=== PATIENT | female | born 1955 | race Caucasian/White ===

== ENCOUNTER 2019-09-17 14:31 | Outpatient (REF) | payer MEDICAID, SELFPAY ==
[2019-09-17 21:34] LABS: Abs Immature Grans 0.09 k/cumm (0.0-0.09); Absolute Eosinophil Count 0.27 k/cumm (0.0-0.7); Absolute Lymphocyte Count 3.26 k/cumm (1.2-3.4); Basophils % 0.6; Eosinophils % 1.9; HCT 43.3 % (36.0-46.0); HGB 13.9 g/dL (12.0-15.5); Immature Grans % 0.6; Lymphocytes % 22.7; Mean Corp. HGB Concentration 32.1 g/dL (32.0-36.0); Mean Corpuscular Hemoglobin 29.3 pg (27.0-33.0); Mean Corpuscular Volume 91.2 fL (80-95); Mean Platelet Volume 9.9 fL (8.0-11.0); Monocytes % 5.4; Neutrophils % 68.8; Platelet Count 421 x1000/uL (130-400); RBC 4.75 m/cumm (4.00-5.20); RBC Distribution Width 14.7 % (11.7-14.6); White Blood Cell Count 14.37 k/cumm (4.4-10.8)
[2019-09-17 21:41] LABS: Absolute Basophil Count 0.09 k/cumm (0.0-0.2); Absolute Monocyte Count 0.78 k/cumm (0.11-0.7); Absolute Neutrophil Count 9.89 k/cumm (1.2-6.7)
[2019-09-17 21:43] LABS: ALT 21 U/L (14-59); AST 17 U/L (15-37); Albumin 3.8 g/dL (3.4-5.0); Alkaline Phosphatase 137 U/L (46-116); Anion Gap 12.9 mmol/L (3-11); BUN 14 mg/dL (7-18); Bilirubin, Total 0.4 mg/dL (0.2-1.0); CO2 23.1 mmol/L (21.0-32.0); CREATININE 1.15 mg/dL (0.55-1.02); Calcium 9.4 mg/dL (8.5-10.1); Chloride 107 mmol/L (98-107); Estimated GFR 47.66 (mL/min/1.73m2); Glucose 99 mg/dL (74-106); Lipase 436 U/L (73-393); Potassium 4.2 mmol/L (3.5-5.1); Sodium 143 mmol/L (136-145); Total Protein 7.7 g/dL (6.4-8.2)
[2019-09-19 11:24] LABS: HIV-1/2 Ag & Ab Screen Negative (Negative)
[2019-09-19 11:56] LABS: Syphilis Serology (RPR) Negative (Negative)
[2019-09-19 14:36] LABS: Chlamydia Result Negative (Negative)
[2019-09-20 08:58] LABS: GC Result Negative (Negative)
== END 2019-09-17 14:51 ==
LOC: NCHCN 14:31
PROVIDERS: PCP Family Medicine; Visit Provider Nurse Practitioner Family
DX: R10.9 Unspecified abdominal pain (principal); R10.2 Pelvic and perineal pain; Z11.4 Encounter for screening for human immunodeficiency virus [HIV]; Z11.3 Encounter for screening for infections with a predominantly sexual mode of transmission
CPT/HCPCS: 80053; 83690; 87389; 87491; 87591; 85025; 86592

== ENCOUNTER 2020-08-20 10:54 | Outpatient (REF) | payer MEDICAID, SELFPAY ==
[2020-08-20 20:47] LABS: HCT 41.6 % (36.0-46.0); HGB 12.8 g/dL (11.2-15.7); MCH 28.8 pg (27.0-33.0); MCHC 30.8 % (32.0-36.0); MCV 93.5 fL (80-95); MPV 10.2 fL (8.0-11.0); Platelet Count 328 10^3/uL (130-400); RBC 4.45 10^6/uL (3.93-5.22); RDW 13.4 % (11.7-14.6); WBC 11.86 10^3/uL (4.4-10.8)
[2020-08-20 21:29] LABS: Anion Gap 10.3 mmol/L (3-11); BUN 12 mg/dL (7-18); CO2 22.7 mmol/L (21.0-32.0); CREATININE 1.09 mg/dL (0.55-1.02); Calcium 9.1 mg/dL (8.5-10.1); Chloride 106 mmol/L (98-107); Glucose 184 mg/dL (74-106); Magnesium 2.1 mg/dL (1.8-2.4); Potassium 4.1 mmol/L (3.5-5.1); Sodium 139 mmol/L (136-145); TSH 1.75 uIU/mL (0.36-3.74); Vitamin B12 348 pg/mL (193-986)
== END 2020-08-20 11:14 ==
LOC: NCHCN 10:54
PROVIDERS: PCP Family Medicine; Visit Provider Nurse Practitioner Family
DX: J44.1 Chronic obstructive pulmonary disease with (acute) exacerbation (principal); J34.89 Other specified disorders of nose and nasal sinuses; I10 Essential (primary) hypertension; F31.32 Bipolar disorder, current episode depressed, moderate
CPT/HCPCS: 80048; 85027; 80178; 82607; 83735; 84443

== ENCOUNTER 2021-02-22 14:53 | Outpatient (REF) | payer MEDICAID, SELFPAY ==
[2021-02-24 13:33] LABS: COVID-19 RT-PCR UVMMC Result Negative (Negative)
== END 2021-02-22 14:54 | disposition home or self-care (01) ==
LOC: NCHCN 14:53
PROVIDERS: PCP Family Medicine; Visit Provider Nurse Practitioner Family
DX: Z20.822 Contact with and (suspected) exposure to COVID-19 (principal); J06.9 Acute upper respiratory infection, unspecified
CPT/HCPCS: U0003

== ENCOUNTER 2021-02-26 09:57 | Outpatient (REF) | payer MEDICAID, SELFPAY ==
[2021-02-26 14:11] LABS: Lithium < 0.2 mmol/l (0.6-1.2)
== END 2021-02-26 09:58 | disposition home or self-care (01) ==
LOC: NCHCN 09:57
PROVIDERS: PCP Family Medicine; Visit Provider Nurse Practitioner Psychiatric/Mental Health
DX: F31.32 Bipolar disorder, current episode depressed, moderate (principal); Z79.899 Other long term (current) drug therapy; Z51.81 Encounter for therapeutic drug level monitoring
CPT/HCPCS: 80178

== ENCOUNTER 2021-07-21 17:06 | Outpatient (REF) | payer MEDICAID, SELFPAY ==
[2021-07-21 17:34] LABS: ALT 23 U/L (14-59); AST 18 U/L (15-37); Albumin 3.4 g/dL (3.4-5.0); Alkaline Phosphatase 138 U/L (46-116); Anion Gap 10.5 mmol/L (3-11); BUN 25 mg/dL (7-18); Bilirubin, Total 0.3 mg/dL (0.2-1.0); CO2 23.5 mmol/L (21.0-32.0); CREATININE 1.4 mg/dL (0.55-1.02); Calcium 9.4 mg/dL (8.5-10.1); Chloride 107 mmol/L (98-107); Estimated GFR 37.86 (mL/min/1.73m2); Glucose 183 mg/dL (74-106); Potassium 4.1 mmol/L (3.5-5.1); Sodium 141 mmol/L (136-145)
[2021-07-21 17:47] LABS: Calculated LDL 71 mg/dL (<100); Cholesterol 166 mg/dL (<200); HDL Cholesterol 43 mg/dL (40-60); Triglyceride 260 mg/dL (<150)
== END 2021-07-21 17:07 | disposition home or self-care (01) ==
LOC: NCHCN 17:06
PROVIDERS: PCP Nurse Practitioner Family; Visit Provider Nurse Practitioner Family
DX: E11.9 Type 2 diabetes mellitus without complications (principal); I10 Essential (primary) hypertension
CPT/HCPCS: 80053; 80061

== ENCOUNTER 2021-08-05 09:55 | Outpatient (REF) | payer MEDICAID, SELFPAY ==
[2021-08-05 14:26] LABS: Abs Immature Grans 0.06 10^3/uL (0.0-0.06); Absolute Eosinophil Count 0.39 10^3/uL (0.0-0.7); Absolute Lymphocyte Count 2.68 10^3/uL (1.2-3.4); Absolute Neutrophil Count 8.94 10^3/uL (1.2-6.7); Basophils % 0.9; HCT 39.6 % (36.0-46.0); HGB 12.3 g/dL (11.2-15.7); Immature Grans % 0.5; Lymphocytes % 20.8; MCH 28.1 pg (27.0-33.0); MCHC 31.1 % (32.0-36.0); MCV 90.6 fL (80-95); MPV 10.6 fL (8.0-11.0); Monocytes % 5.4; Neutrophils % 69.4; Nucleated RBC 0 %; Platelet Count 387 10^3/uL (130-400); RBC 4.37 10^6/uL (3.93-5.22); RDW 12.9 % (11.7-14.6); RDW-SD 42.5 fL; WBC 12.88 10^3/uL (4.4-10.8)
[2021-08-05 14:27] LABS: Absolute Basophil Count 0.12 10^3/uL (0.0-0.2)
[2021-08-05 14:48] LABS: ALT 21 U/L (14-59); AST 20 U/L (15-37); Albumin 3.4 g/dL (3.4-5.0); Alkaline Phosphatase 152 U/L (46-116); Anion Gap 7.9 mmol/L (3-11); BUN 18 mg/dL (7-18); Bilirubin, Total 0.3 mg/dL (0.2-1.0); CO2 26.1 mmol/L (21.0-32.0); CREATININE 1.4 mg/dL (0.55-1.02); Calcium 9.3 mg/dL (8.5-10.1); Chloride 107 mmol/L (98-107); Estimated GFR 37.86 (mL/min/1.73m2); Glucose 201 mg/dL (74-106); Lipase 229 U/L (73-393); Potassium 4.2 mmol/L (3.5-5.1); Sodium 141 mmol/L (136-145); Total Protein 6.9 g/dL (6.4-8.2)
[2021-08-05 17:15] LABS: GGT 40 U/L (5-55)
[2021-08-09 11:38] LABS: IgA 190 mg/dL (85-499); Interpretation (See Note); Tissue Transglutaminase IgA <1.2 U/mL (<4.0)
== END 2021-08-05 09:56 | disposition home or self-care (01) ==
LOC: NCHCN 09:55
PROVIDERS: PCP Nurse Practitioner Family; Visit Provider Nurse Practitioner Family
DX: R74.8 Abnormal levels of other serum enzymes (principal); I10 Essential (primary) hypertension; N18.9 Chronic kidney disease, unspecified; R11.0 Nausea
CPT/HCPCS: 80053; 82784; 83516; 83690; 82977; 85025

== ENCOUNTER 2021-09-15 16:25 | Outpatient (REF) | payer MEDICARE, MEDICAID, SELFPAY ==
[2021-09-15 21:34] LABS: Bilirubin Negative (Negative); Blood Negative (Negative); Clarity Clear (Clear); Glucose Negative (Negative); Ketones Negative (Negative); Leukocyte Esterase Negative (Negative); Nitrite Negative (Negative); Specific Gravity >= 1.030 (1.005-1.025); Urobilinogen 0.2 EU/dL (Up TO 0.2)
[2021-09-15 21:44] LABS: Bacteria Many HPF (Negative); C & S Indicated? No/Sq. Contamination; Casts Negative LPF (Negative); Crystals Negative HPF (Negative); Epithelial Cells Many HPF (Negative); Mucus Negative (Negative); RBC Negative HPF (0-2)
[2021-09-15 21:48] LABS: Creatinine,Urine 349.08 mg/dL
[2021-09-15 21:52] LABS: Lithium 0.3 mmol/l (0.6-1.2)
[2021-09-17 15:38] LABS: COVID-19 RT-PCR UVMMC Result Negative (Negative)
== END 2021-09-15 16:26 | disposition home or self-care (01) ==
LOC: NCHCN 16:25
PROVIDERS: PCP Nurse Practitioner Family; Visit Provider Registered Nurse
DX: Z20.822 Contact with and (suspected) exposure to COVID-19 (principal); R19.7 Diarrhea, unspecified; F32.9 Major depressive disorder, single episode, unspecified
CPT/HCPCS: U0003; U0005; 80178; 81003; 81015; 82565

== ENCOUNTER 2021-10-04 16:10 | Outpatient (REF) | payer MEDICARE, MEDICAID, SELFPAY ==
[2021-10-04 22:07] LABS: ALT 59 U/L (14-59); AST 42 U/L (15-37); Alkaline Phosphatase 124 U/L (46-116); Anion Gap 15.1 mmol/L (3-11); BUN 14 mg/dL (7-18); Bilirubin, Total 0.3 mg/dL (0.2-1.0); CO2 18.9 mmol/L (21.0-32.0); Calcium 8.8 mg/dL (8.5-10.1); Chloride 110 mmol/L (98-107); Glucose 110 mg/dL (74-106); Lipase 166 U/L (73-393); PHOSPHORUS 3.7 mg/dL (2.6-4.7); Potassium 3.8 mmol/L (3.5-5.1); Sodium 144 mmol/L (136-145); Total Protein 6.5 g/dL (6.4-8.2)
[2021-10-04 22:12] LABS: CREATININE 1.1 mg/dL (0.55-1.02); Estimated GFR 49.85 (mL/min/1.73m2)
[2021-10-04 22:45] LABS: Vitamin D 25 Total 27.1 ng/mL (30-100)
[2021-10-06 12:05] LABS: Parathyroid Hormone,Intact 26 pg/mL (19-88)
== END 2021-10-04 16:11 | disposition home or self-care (01) ==
LOC: NCHCN 16:10
PROVIDERS: PCP Nurse Practitioner Family; Visit Provider Nurse Practitioner Family
DX: R74.8 Abnormal levels of other serum enzymes (principal); N18.9 Chronic kidney disease, unspecified; K76.0 Fatty (change of) liver, not elsewhere classified; K86.9 Disease of pancreas, unspecified
CPT/HCPCS: 80053; 82306; 83690; 83970; 84100

== ENCOUNTER 2022-02-08 10:28 | Outpatient (REF) | payer MEDICARE, MEDICAID, SELFPAY ==
[2022-02-08 17:19] LABS: HCT 39.1 % (36.0-46.0); HGB 12.5 g/dL (11.2-15.7); MCV 90.7 fL (80-95); MPV 10.4 fL (8.0-11.0); Platelet Count 358 10^3/uL (130-400); RBC 4.31 10^6/uL (3.93-5.22); RDW 13.3 % (11.7-14.6); WBC 12.27 10^3/uL (4.4-10.8)
[2022-02-08 17:29] LABS: ALT 21 U/L (14-59); AST 16 U/L (15-37); Albumin 3.7 g/dL (3.4-5.0); Alkaline Phosphatase 134 U/L (46-116); Anion Gap 11.8 mmol/L (3-11); BUN 15 mg/dL (7-18); Bilirubin, Total 0.5 mg/dL (0.2-1.0); CO2 22.2 mmol/L (21.0-32.0); CREATININE 1.1 mg/dL (0.55-1.02); Calcium 9.6 mg/dL (8.5-10.1); Chloride 107 mmol/L (98-107); Estimated GFR 49.85 (mL/min/1.73m2); Glucose 168 mg/dL (74-106); Sodium 141 mmol/L (136-145); Total Protein 7.2 g/dL (6.4-8.2)
[2022-02-10 12:49] LABS: Hepatitis C Ab w Rflx HCV PCR Negative (Negative)
== END 2022-02-08 10:29 | disposition home or self-care (01) ==
LOC: NCHCN 10:28
PROVIDERS: PCP Nurse Practitioner Family; Visit Provider Nurse Practitioner Family
DX: E11.9 Type 2 diabetes mellitus without complications (principal); I10 Essential (primary) hypertension; F11.21 Opioid dependence, in remission; N18.9 Chronic kidney disease, unspecified; Z20.9 Contact with and (suspected) exposure to unspecified communicable disease
CPT/HCPCS: 80053; 85027; 86803

== ENCOUNTER 2022-09-12 15:15 | Outpatient (REF) | payer MEDICARE, MEDICAID, SELFPAY ==
[2022-09-12 15:52] LABS: ALT 15 U/L (14-59); AST 18 U/L (15-37); Albumin 3.3 g/dL (3.4-5.0); Alkaline Phosphatase 144 U/L (46-116); Anion Gap 11.3 mmol/L (3-11); BUN 12 mg/dL (7-18); Bilirubin, Total 0.4 mg/dL (0.2-1.0); CO2 23.7 mmol/L (21.0-32.0); CREATININE 1.2 mg/dL (0.55-1.02); Calcium 9.3 mg/dL (8.5-10.1); Chloride 106 mmol/L (98-107); Estimated GFR 49.92 (mL/min/1.73m2); Glucose 221 mg/dL (74-106); Potassium 3.5 mmol/L (3.5-5.1); Sodium 141 mmol/L (136-145); Total Protein 7.7 g/dL (6.4-8.2)
[2022-09-12 16:18] LABS: Hemoglobin A1C 6.6 % (<5.7)
[2022-09-14 13:01] LABS: HCV RNA Qualitative Undetected (Undetected)
== END 2022-09-12 15:16 | disposition home or self-care (01) ==
LOC: NCHCN 15:15
PROVIDERS: PCP Nurse Practitioner Family; Visit Provider Nurse Practitioner Family
DX: E11.9 Type 2 diabetes mellitus without complications (principal); R74.8 Abnormal levels of other serum enzymes; I10 Essential (primary) hypertension; K76.0 Fatty (change of) liver, not elsewhere classified
CPT/HCPCS: 80053; 87522; 83036

== ENCOUNTER 2022-09-19 11:33 | Outpatient (REF) | payer MEDICARE, MEDICAID, SELFPAY ==
[2022-09-19 15:11] LABS: Lithium 0.4 mmol/l (0.6-1.2)
== END 2022-09-19 11:34 | disposition home or self-care (01) ==
LOC: NCHCN 11:33
PROVIDERS: PCP Nurse Practitioner Family; Visit Provider Nurse Practitioner Family
DX: F11.21 Opioid dependence, in remission (principal); E11.9 Type 2 diabetes mellitus without complications; I10 Essential (primary) hypertension; Z51.81 Encounter for therapeutic drug level monitoring; Z79.899 Other long term (current) drug therapy
CPT/HCPCS: 80178

== ENCOUNTER 2023-06-01 17:21 | Outpatient (REF) | payer MEDICARE, MEDICAID, SELFPAY ==
[2023-06-01 15:11] LABS: HCT 38.9 % (36.0-46.0); HGB 12.5 g/dL (11.2-15.7); MCH 28.9 pg (27.0-33.0); MCHC 32.1 % (32.0-36.0); MCV 90 fL (80-95); MPV 10.7 fL (8.0-11.0); Platelet Count 304 10^3/uL (130-400); RBC 4.33 10^6/uL (3.93-5.22); RDW 13.1 % (11.7-14.6); RDW-SD 43.1 fL; WBC 10.03 10^3/uL (4.4-10.8)
[2023-06-01 15:21] LABS: COMMENT (LAB VIEW ONLY) 74.91 mg/dL; Microalb ug/mg Crea 6.7 ug/mg Cr
[2023-06-01 15:29] LABS: ALT 14 U/L (14-59); AST 17 U/L (15-37); Albumin 3.3 g/dL (3.4-5.0); Alkaline Phosphatase 124 U/L (46-116); Anion Gap 9.9 mmol/L (3-11); BUN 13 mg/dL (7-18); Bilirubin, Total 0.4 mg/dL (0.2-1.0); CO2 22.1 mmol/L (21.0-32.0); CREATININE 1.1 mg/dL (0.55-1.02); Calcium 9.1 mg/dL (8.5-10.1); Chloride 109 mmol/L (98-107); Estimated GFR 55.42 (mL/min/1.73m2); Glucose 112 mg/dL (74-106); Potassium 3.9 mmol/L (3.5-5.1); Sodium 141 mmol/L (136-145); TSH 1.68 uIU/mL (0.36-3.74); Total Protein 7.3 g/dL (6.4-8.2)
[2023-06-01 15:33] LABS: Hemoglobin A1C 6.4 % (<5.7)
[2023-06-02 12:43] LABS: GGT 25 U/L (5-55)
[2023-06-02 13:08] LABS: Vitamin D 25 Total 30.5 ng/mL (30-100)
== END 2023-06-01 17:22 | disposition home or self-care (01) ==
LOC: NCHCN 17:21
PROVIDERS: PCP Nurse Practitioner Family; Visit Provider Nurse Practitioner Family
DX: E11.9 Type 2 diabetes mellitus without complications (principal); E55.9 Vitamin D deficiency, unspecified; I10 Essential (primary) hypertension; R74.8 Abnormal levels of other serum enzymes; R53.83 Other fatigue
CPT/HCPCS: 80053; 82306; 85027; 82043; 82570; 82977; 83036; 84443

== ENCOUNTER 2023-10-24 15:16 | Outpatient (REF) | payer MEDICARE, MEDICAID, SELFPAY ==
[2023-10-24 15:06] LABS: Lithium 0.5 mmol/l (0.6-1.2)
== END 2023-10-24 15:17 | disposition home or self-care (01) ==
LOC: NCHCN 15:16
PROVIDERS: PCP Nurse Practitioner Family; Visit Provider Nurse Practitioner Psychiatric/Mental Health
DX: F31.9 Bipolar disorder, unspecified (principal); Z51.81 Encounter for therapeutic drug level monitoring
CPT/HCPCS: 80178

== ENCOUNTER 2024-01-18 13:31 | Outpatient (REF) | payer MEDICARE, MEDICAID, SELFPAY ==
[2024-01-18 15:28] LABS: Lipase 177 U/L (16-77)
[2024-01-18 15:55] LABS: Lithium 2.3 mmol/l (0.6-1.2)
[2024-01-18 17:42] LABS: Calcium 9.1 mg/dL (8.5-10.1); Glucose 92 mg/dL (74-106)
[2024-01-18 17:43] LABS: BUN 38 mg/dL (7-18); CREATININE 2.4 mg/dL (0.55-1.02)
[2024-01-18 17:44] LABS: Anion Gap 10.6 mmol/L (3-11); Potassium 4.9 mmol/L (3.5-5.1); Sodium 138 mmol/L (136-145)
[2024-01-18 17:45] LABS: CO2 19.4 mmol/L (21.0-32.0); Chloride 108 mmol/L (98-107)
== END 2024-01-18 13:32 | disposition home or self-care (01) ==
LOC: NCHCN 13:31
PROVIDERS: PCP Nurse Practitioner Family; Visit Provider Nurse Practitioner Family
DX: I10 Essential (primary) hypertension (principal); R10.9 Unspecified abdominal pain; F31.89 Other bipolar disorder; Z51.81 Encounter for therapeutic drug level monitoring; Z79.899 Other long term (current) drug therapy
CPT/HCPCS: 80048; 83690; 80178

== ENCOUNTER 2024-01-19 11:26 | Outpatient (REF) | payer MEDICARE, MEDICAID, SELFPAY ==
[2024-01-19 14:51] LABS: BUN 46 mg/dL (7-18); Chloride 107 mmol/L (98-107); Estimated GFR 16.52 (mL/min/1.73m2); Glucose 110 mg/dL (74-106); Potassium 4.6 mmol/L (3.5-5.1); Sodium 136 mmol/L (136-145)
[2024-01-19 15:21] LABS: Lithium 2.5 mmol/l (0.6-1.2)
== END 2024-01-19 11:27 | disposition home or self-care (01) ==
LOC: NCHCN 11:26
PROVIDERS: PCP Nurse Practitioner Family; Visit Provider Nurse Practitioner Family
DX: F31.9 Bipolar disorder, unspecified (principal); Z51.81 Encounter for therapeutic drug level monitoring; Z79.899 Other long term (current) drug therapy
CPT/HCPCS: 80048; 80178

== ENCOUNTER 2024-01-24 12:57 | Outpatient (REF) | payer MEDICARE, MEDICAID, SELFPAY ==
[2024-01-24 21:16] LABS: Lithium 0.5 mmol/l (0.6-1.2)
[2024-01-24 21:22] LABS: Anion Gap 11.8 mmol/L (3-11); BUN 12 mg/dL (7-18); CO2 19.2 mmol/L (21.0-32.0); CREATININE 1.5 mg/dL (0.55-1.02); Calcium 8.5 mg/dL (8.5-10.1); Chloride 111 mmol/L (98-107); Estimated GFR 37.96 (mL/min/1.73m2); Glucose 141 mg/dL (74-106); Potassium 4.9 mmol/L (3.5-5.1); Sodium 142 mmol/L (136-145)
== END 2024-01-24 12:58 | disposition home or self-care (01) ==
LOC: NCHCN 12:57
PROVIDERS: PCP Nurse Practitioner Family; Visit Provider Nurse Practitioner Family
DX: N18.9 Chronic kidney disease, unspecified (principal); I10 Essential (primary) hypertension; E11.9 Type 2 diabetes mellitus without complications; F31.32 Bipolar disorder, current episode depressed, moderate; Z51.81 Encounter for therapeutic drug level monitoring
CPT/HCPCS: 80048; 80178

== ENCOUNTER 2024-02-21 13:45 | Outpatient (REF) | payer MEDICARE, MEDICAID, SELFPAY ==
[2024-02-21 14:46] LABS: Lithium < 0.2 mmol/L (0.6-1.2)
[2024-02-21 14:47] LABS: ALT 54 U/L (14-59); AST 29 U/L (15-37); Albumin 3.8 g/dL (3.4-5.0); Alkaline Phosphatase 144 U/L (46-116); Anion Gap 12.6 mmol/L (3-11); BUN 12 mg/dL (7-18); Bilirubin, Total 0.7 mg/dL (0.2-1.0); CO2 24.4 mmol/L (21.0-32.0); CREATININE 1.4 mg/dL (0.55-1.02); Calcium 9.5 mg/dL (8.5-10.1); Chloride 109 mmol/L (98-107); Estimated GFR 41.24 (mL/min/1.73m2); Glucose 94 mg/dL (74-106); Potassium 3.5 mmol/L (3.5-5.1); Sodium 146 mmol/L (136-145); TSH (W/Ref FT4) 1.11 uIU/mL (0.36-3.74); Total Protein 8.2 g/dL (6.4-8.2)
== END 2024-02-21 13:46 | disposition home or self-care (01) ==
LOC: NCHCN 13:45
PROVIDERS: PCP Nurse Practitioner Family; Visit Provider Nurse Practitioner Family
DX: R60.0 Localized edema (principal)
CPT/HCPCS: 80053; 80178; 84443

== ENCOUNTER 2024-06-25 17:22 | Outpatient (REF) | payer MEDICARE, MEDICAID, SELFPAY ==
[2024-06-25 22:55] LABS: COMMENT (LAB VIEW ONLY) 35.46 mg/dL; Microalb ug/mg Crea 9.6 ug/mg Cr
== END 2024-06-25 17:23 | disposition home or self-care (01) ==
LOC: NCHCN 17:22
PROVIDERS: PCP Nurse Practitioner Family; Visit Provider Nurse Practitioner Family
DX: E11.9 Type 2 diabetes mellitus without complications (principal)
CPT/HCPCS: 82043; 82570

== ENCOUNTER 2024-08-08 17:00 | Outpatient (REF) | payer MEDICARE, SELFPAY ==
--- NOTE | 2024-08-08 07:45 | SKI_PTH ---
PATIENT: Melita Watkins LOC: [facility] U#:[id number] AGE/SX: 68/F ROOM: RE08/08/[address]: Adriana Ceron : 1955 BED: DIS: 08/08/2024 SPEC #: [id number] RECD: 08/08/24 17:19 STATUS: SHERRIE REQ #: [id number] JOSE: 08/08/24 07:[address]: Adriana Zheng DEPT: Surgical Specimen RECD BY: Cornelia Dior Tissues: 1 - SKIN BIOPSY(SHAVE/PUNCH) 2 - ENDOMETRIUM BX/CURRETTE Procedures: GROSS AND MICRO LEVEL 4 SKIN LEVEL 4 Comments: [id number]
== END 2024-08-08 17:01 | disposition home or self-care (01) ==
LOC: NCHCN 17:00
PROVIDERS: PCP Nurse Practitioner Family; Visit Provider Nurse Practitioner Family
DX: L82.1 Other seborrheic keratosis (principal)
CPT/HCPCS: 88305

== ENCOUNTER 2025-02-18 16:13 | Outpatient (REF) | payer MEDICARE, MEDICAID, SELFPAY ==
[2025-02-18 21:30] LABS: HCT 42.2 % (36.0-46.0); HGB 13.7 g/dL (11.2-15.7); MCH 29.3 pg (27.0-33.0); MCHC 32.5 % (32.0-36.0); MCV 90 fL (80-95); MPV 9.8 fL (8.0-11.0); Platelet Count 303 10^3/uL (130-400); RBC 4.68 10^6/uL (3.93-5.22); RDW-SD 42.5 fL
[2025-02-18 21:48] LABS: Hemoglobin A1C 6.5 % (<5.7)
[2025-02-18 22:23] LABS: ALT 18 U/L (14-59); AST 20 U/L (15-37); Albumin 3.2 g/dL (3.4-5.0); Alkaline Phosphatase 138 U/L (46-116); BUN 13 mg/dL (7-18); Bilirubin, Total 0.4 mg/dL (0.2-1.0); CREATININE 1.2 mg/dL (0.55-1.02); Calcium 9.8 mg/dL (8.5-10.1); Calculated LDL 30 mg/dL (<100); Chloride 109 mmol/L (98-107); Cholesterol 116 mg/dL (<200); Estimated GFR 49.31 (mL/min/1.73m2); Glucose 141 mg/dL (74-106); HDL Cholesterol 59 mg/dL (>or=50); Sodium 139 mmol/L (136-145); Triglyceride 139 mg/dL (<150); Vitamin B12 250 pg/mL (193-986)
== END 2025-02-18 16:14 | disposition home or self-care (01) ==
LOC: NCHCN 16:13
PROVIDERS: PCP Nurse Practitioner Family; Visit Provider Nurse Practitioner Family
DX: I10 Essential (primary) hypertension (principal); E11.9 Type 2 diabetes mellitus without complications; K21.9 Gastro-esophageal reflux disease without esophagitis
CPT/HCPCS: 80053; 80061; 85027; 82607; 83036; 83735

== ENCOUNTER 2025-02-24 16:11 | Outpatient (REF) | payer MEDICARE, MEDICAID, SELFPAY ==
[2025-02-24 22:12] LABS: COMMENT (LAB VIEW ONLY) 62.43 mg/dL; Microalb ug/mg Crea 15.9 ug/mg Cr
== END 2025-02-24 16:12 | disposition home or self-care (01) ==
LOC: NCHCN 16:11
PROVIDERS: PCP Nurse Practitioner Family; Visit Provider Nurse Practitioner Family
DX: E11.22 Type 2 diabetes mellitus with diabetic chronic kidney disease (principal); N18.30 Chronic kidney disease, stage 3 unspecified
CPT/HCPCS: 82043; 82570

== ENCOUNTER 2025-06-05 15:09 | Outpatient (REF) | payer MEDICARE, MEDICAID, SELFPAY ==
[2025-06-05 14:42] LABS: Anion Gap 8.5 mmol/L (3-11); BUN 29 mg/dL (7-18); CO2 24.5 mmol/L (21.0-32.0); Calcium 9.8 mg/dL (8.5-10.1); Chloride 104 mmol/L (98-107); Estimated GFR 37.72 (mL/min/1.73m2); Glucose 166 mg/dL (74-106); Potassium 3.7 mmol/L (3.5-5.1); Sodium 137 mmol/L (136-145)
[2025-06-05 14:46] LABS: Hemoglobin A1C 6.8 % (<5.7)
== END 2025-06-05 15:10 | disposition home or self-care (01) ==
LOC: NCHCN 15:09
PROVIDERS: PCP Nurse Practitioner Family; Visit Provider Nurse Practitioner Family
DX: E11.22 Type 2 diabetes mellitus with diabetic chronic kidney disease (principal)
CPT/HCPCS: 80048; 83036